=== PATIENT | male | born 1925 | race Asian ===

== ENCOUNTER 2016-08-18 09:08 | Inpatient (IN) | payer MEDICARE, OTHER ==
[~2016-08-18] VITALS: Ht 172.7 cm; Wt 84.0 kg
[~2016-08-18 09:08] MED LIST: ALBU18HF INHALATION; AMIO200T2 PO; APIX2.5T PO; BENZ100C70 PO; BUDE6.9H INHALATION; CARV12.598 PO; CHOL100062 PO; CILO50TA PO; CLOP75TA19 PO; COLE625T2 PO; DOXA1TAB PO; DOXY100T20 PO; FINA5TAB4 PO; FOLI-49 PO; FURO-110 PO; GABA100C14 PO; HYDR-3670 PO; ISOS120T15 PO; LEVO88TA3 PO; LORA-186 PO; OMEP20CA16 PO; POTA10TA37 PO; ROSU5TAB5 PO
[2016-08-18] MEDS ORDERED: COLC0.6T6 PO (10:28)
[2016-08-18] MEDS ORDERED: UDLOM PO (10:28)
[2016-08-18] MEDS ORDERED: IBUP-1542 PO (10:34)
[2016-08-18] MEDS ORDERED: SOD CHLORIDE 0.9% 1,000 ML IV STA (10:45)
[2016-08-18 10:56] LABS: ADD SCAN DIFF NO
[2016-08-18 11:02] LABS: BASOPHILS % 0.2 % (0.0-2.0); EOSINOPHILS % 0.4 % (0.0-7.0); HEMATOCRIT 38.4 % (42.0-52.0); HEMOGLOBIN 13.1 g/dl (14.0-18.0); LYMPHOCYTES # 0.9 10^3/ul (0.8-2.9); LYMPHOCYTES % 10.5 % (15.0-51.0); MEAN CORPUSCULAR HEMOGLOBIN 32.3 pg (29.0-33.0); MEAN CORPUSCULAR HGB CONC 34.1 g/dl (32.0-37.0); MEAN CORPUSCULAR VOLUME 94.8 fl (82.0-101.0); MEAN PLATELET VOLUME 10.2 fl (7.4-10.4); MONOCYTE # 0.9 10^3/ul (0.3-0.9); MONOCYTES % 10.1 % (0.0-11.0); NEUTROPHIL # 6.7 10^3/ul (1.6-7.5); NEUTROPHILS % 78.2 % (39.0-77.0); PLATELET COUNT 153 10^3/UL (140-415); RED BLOOD COUNT 4.05 10^6/ul (4.70-6.10); RED CELL DISTRIBUTION WIDTH 12.9 % (11.5-14.5); WHITE BLOOD COUNT 8.5 10^3/ul (4.8-10.8)
[2016-08-18 11:06] LABS: ALBUMIN 3.7 g/dl (3.3-4.9)
[2016-08-18 11:07] LABS: POTASSIUM 4.4 mmol/L (3.5-5.1)
[2016-08-18 11:09] LABS: ALBUMIN/GLOBULIN RATIO 0.92; BILIRUBIN,INDIRECT 0.1 mg/dl (0-1.1); BILIRUBIN,TOTAL 0.1 mg/dl (0.2-1.3); CREATININE 4.67 mg/dl (0.61-1.24); TOTAL PROTEIN 7.7 g/dl (6.1-8.1)
[2016-08-18 11:10] LABS: CALCIUM 9.1 mg/dl (8.4-10.2)
--- NOTE | 2016-08-18 12:11 | RADRPT ---
PROCEDURE: CT Abdomen and Pelvis without contrast. CLINICAL INDICATION: Abdominal pain, diarrhea. TECHNIQUE: CT scan of the abdomen and pelvis without contrast was performed on a multidetector hig h-resolution CT scanner. The patient was scanned without intravenous contrast. Coronal and sagittal reformatted images were obtained from the axial source images. Images were reviewed on a high-resol Suite101 PACS workstation. One or more of the following dose reduction techniques were used: Automated exposure control, adjustment of the mA and/or kV according to patient size, use of iterative recon struction technique. The total exam CTDI equals 15.21 mGy and the total exam DLP equals 946.79 mGy- cm. COMPARISON: Correlation with renal ultrasound from 07/27/2014 FINDINGS: CT abdomen: The heart size is enlarged. Coronary artery atherosclerotic calcifications are present. ch anges are present at the lung bases. There is a small hiatal hernia. The liver is normal in size and density without focal mass or intrahepatic biliary dilatation. The spleen is normal in size and homogeneous in density. The stomach is grossly unremarkable. The panc reas as visualized is normal. Small stones are present dependently within the gallbladder. There i s no evidence of gallbladder wall inflammation. The adrenal glands are symmetric and normal. Mult iple bilateral hypodense renal lesions are present measuring up to 3.5 cm on the left and likely rep resenting simple cysts. Minimal bilateral perinephric fat stranding is likely related to senescent change. There is no evidence of renal calculi or hydronephrosis. The aorta is of normal caliber. Heavy aortoiliac atherosclerotic calcifications are present. There i s no retroperitoneal lymphadenopathy. The mouna hepatis region is clear. The small bowel and mesen elsy, as visualized, are unremarkable. CT pelvis: The small bowel loops situated within the pelvis are unremarkable. The pelvic organs are normal. T he pelvic sidewalls and inguinal regions are clear. The sigmoid colon and rectum are unremarkable. No mass, lymphadenopathy, or free fluid is seen. No acute inflammation is seen. There is a moderate diffuse posterior disk bulge at L3-L4 resulting in moderate central canal narrow ing. No osteolytic or osteoblastic lesion is detected. IMPRESSION: 1. No abdominal or pelvic acute inflammatory process, mass, or lymphadenopathy. 2. Simple appearing bilateral hypodense renal lesions likely representing cysts. 3. Cholelithiasis without evidence of cholecystitis. 4. Heavy aortoiliac and coronary artery atherosclerosis. 5. Lumbar spondylosis with moderate central canal narrowing at L3-L4. 6. Small hiatal hernia. RPTAT: EE .Stefano Bonilla MD, Date Time Electronically viewed and signed by .Stefano Bonilla MD, on 08/18/2016 12:11 .A/
[2016-08-18 13:19] LABS: ADD UMIC YES; URINE BILIRUBIN (Dip) NEGATIVE (NEGATIVE); URINE BLOOD (Dip) 3+ (NEGATIVE); URINE COLOR LT. YELLOW (YELLOW); URINE GLUCOSE (Dip) NEGATIVE (NEGATIVE); URINE KETONES (Dip) NEGATIVE (NEGATIVE); URINE LEUKOCYTE ESTERASE (Dip) 1+ (NEGATIVE); URINE NITRITE (Dip) NEGATIVE (NEGATIVE); URINE TOTAL PROTEIN (Dip) 1+ (NEGATIVE); URINE UROBILINOGEN (Dip) 0.2 E.U./dL (0.1-1.0)
--- NOTE | 2016-08-18 13:25 | ERA ---
ER Documentation Chief Complaint Date/Time DATE: 08/18/16 TIME: 13:19 Chief Complaint diarrhea x 3 days HPI This is a 89-year-old male who complains of diarrhea for the past 4 days. Is having some left-sided abdominal pain onset for 2 days now described as crampy and nonradiating. He is having 4-5 bouts of diarrhea each day that are nonbloody without mucus. Denies any fever denies nausea vomiting denies chest pain denies hematuria dysuria back pain. No recent travel and no known food exposures. The patient is complaining of generalized malaise and fatigue and a lack of appetite that is mild ROS All systems reviewed and are negative except as per history of present illness. Medications Home Meds Active Scripts Benzonatate* (Tessalon Perle*) 100 Mg Capsule, 100 MG PO Q8H Y for COUGH, #14 CAP Prov:RUTH DENTON DO 11/29/15 Doxycycline Hyclate* (Doxycycline Hyclate*) 100 Mg Tablet.dr, 100 MG PO BID for 10 Days, TAB Prov:RUTH DENTON DO 11/29/15 Reported Medications Ibuprofen* (Ibuprofen*) 600 Mg Tablet, 600 MG PO Q8 Y for PAIN AND/OR INFLAMMATION, TAB 08/18/16 Colchicine* (Colcrys*) 0.6 Mg Tablet, 0.6 MG PO QID, TAB 08/18/16 Diphenoxylate Hcl-Atropine* (Lomotil*) 5 Ml Soln, 5 ML PO Q6H Y for DIARRHEA, ML 08/18/16 Budesonide-Formoterol Fumarate* (Symbicort*) 80-4.5 Mcg Hfa.aer.ad, 2 PUFF INHALATION BID, BOTTLE 11/29/15 Albuterol Sulfate* (Ventolin HFA*) 18 Gm Hfa.aer.ad, 2 PUFF INHALATION Q6H, #1 INHALER 11/29/15 Folic Acid* (Folic Acid*) 1 Mg Tablet, 1 MG PO DAILY, TAB 11/29/15 Potassium Chloride* (K-Dur*) 10 Meq Tab.prt.sr, 10 MEQ PO DAILY, TAB 11/29/15 Gabapentin* (Gabapentin*) 100 Mg Capsule, 100 MG PO QHS, #90 CAP 11/29/15 Cholecalciferol* (Vitamin D3*) 1,000 Unit Tablet, 1000 UNIT PO DAILY, TAB 11/29/15 Loratadine* (Claritin*) 10 Mg Tablet, 10 MG PO DAILY, TAB 11/29/15 Apixaban* (Eliquis*) 2.5 Mg Tablet, 2.5 MG PO BID, TAB 11/29/15 Isosorbide Mononitrate* (Isosorbide Mononitrate*) 120 Mg Tab.sr.24h, 240 MG PO DAILY, TAB.SA 11/29/15 Furosemide* (Lasix*) 20 Mg Tablet, 20 MG PO BID, TAB 11/29/15 Amiodarone Hcl* (Amiodarone Hcl*) 200 Mg Tablet, 200 MG PO DAILY, #30 TAB 11/29/15 Doxazosin Mesylate* (Doxazosin Mesylate*) 1 Mg Tablet, 1 MG PO HS, TAB 01/15/14 Rosuvastatin Calcium* (Crestor*) 5 Mg Tablet, 5 MG PO HS, TAB 01/15/14 Carvedilol* (Coreg*) 12.5 Mg Tablet, 12.5 MG PO BID, TAB 01/15/14 Omeprazole* (Omeprazole*) 20 Mg Capsule.dr, 20 MG PO BID AC MEAL, CAP 01/15/14 Cilostazol* (Cilostazol*) 50 Mg Tablet, 50 MG PO BID, TAB 01/15/14 Colesevelam Hcl* (Welchol*) 625 Mg Tablet, 1875 MG PO BID, TAB 01/15/14 Hydralazine Hcl* (Hydralazine Hcl*) 10 Mg Tablet, 10 MG PO TID, TAB 01/15/14 Levothyroxine Sodium* (Levothyroxine Sodium*) 88 Mcg Tablet, 88 MCG PO DAILY, TAB 01/15/14 Clopidogrel Bisulfate (Plavix) 75 Mg Tablet, 75 MG PO DAILY 05/26/11 Finasteride* (Finasteride*) 5 Mg Tablet, 5 MG PO DAILY 05/26/11 Allergies Allergies: Coded Allergies: No Known Allergy (Verified , 11/29/15) PMhx/Soc History of Surgery: Yes Anesthesia Reaction: No Hx Neurological Disorder: No Hx Respiratory Disorders: No Hx Cardiac Disorders: Yes (HTN, PREVIOUS TRIPLE BYPASS,CAD, PACEMAKER) Hx Psychiatric Problems: No Hx Miscellaneous Medical Probl: No Hx Alcohol Use: No Hx Substance Use: No Hx Tobacco Use: No Smoking Status: Never smoker FmHx Family History: No coronary disease Physical Exam Vitals Vital Signs Date Time Temp Pulse Resp B/P Pulse Ox O2 Delivery O2 Flow Rate FiO2 08/18/16 10:12 73 20 117/73 100 Room Air 08/18/16 09:18 97.6 65 20 120/57 98 Physical Exam Const: Well-developed, well-nourished Head: Atraumatic, normocephalic Eyes: Normal Conjunctiva, PERRLA, EOMI, normal sclera, no nystagmus ENT: Normal External Ears, Nose and Mouth, moist mucus membranes. Neck: Full range of motion. No meningismus, no lymphadenopathy. Resp: Clear to auscultation bilaterally, no wheezing, rhonchi, rales Cardio: Regular rate and rhythm, no murmurs, S1 S2 present Abd: Soft, some mild diffuse left abdominal tenderness, non distended. Normal bowel sounds, no guarding or rebound, no pulsitile abdominal masses or bruits Skin: No petechiae or rashes, no ecchymosis , no maculopapular rash Back: No midline or flank tenderness Ext: No cyanosis, or edema, FROM x 4, normal inspection, neurovascularly intact x 4 Neur: Awake and alert, STR 5/5 x 4, sensation intact x 4, no focal findings, cerebellum intact Psych: Normal Mood and Affect Result Diagram: 08/18/1695408/18/16 0955 Results 24 hrs Laboratory Tests Test 08/18/16 09:55 White Blood Count 8.510^3/ul Red Blood Count 4.0510^6/ul Hemoglobin 13.1g/dl Hematocrit 38.4% Mean Corpuscular Volume 94.8fl Mean Corpuscular Hemoglobin 32.3pg Mean Corpuscular Hemoglobin Concent 34.1g/dl Red Cell Distribution Width 12.9% Platelet Count 17015^3/UL Mean Platelet Volume 10.2fl Neutrophils % 78.2% Lymphocytes % 10.5% Monocytes % 10.1% Eosinophils % 0.4% Basophils % 0.2% Nucleated Red Blood Cells % 0.0/100WBC Neutrophils # 6.710^3/ul Lymphocytes # 0.910^3/ul Monocytes # 0.910^3/ul Eosinophils # 0.010^3/ul Basophils # 0.010^3/ul Nucleated Red Blood Cells # 0.010^3/ul Sodium Level 131mmol/L Potassium Level 4.4mmol/L Chloride Level 99mmol/L Carbon Dioxide Level 17mmol/L Anion Gap 19 Blood Urea Nitrogen 62mg/dl Creatinine 4.67mg/dl Glucose Level 84mg/dl Calcium Level 9.1mg/dl Total Bilirubin 0.1mg/dl Direct Bilirubin 0.00mg/dl Indirect Bilirubin 0.1mg/dl Aspartate Amino Transf (AST/SGOT) 31IU/L Alanine Aminotransferase (ALT/SGPT) 32IU/L Alkaline Phosphatase 95IU/L Total Protein 7.7g/dl Albumin 3.7g/dl Globulin 4.00g/dl Albumin/Globulin Ratio 0.92 Lipase 519U/L Current Medications Medications (Trade) Dose Ordered Sig/Manasa Route PRN Reason Start Time Stop Time Status Last Admin Dose Admin Sodium Chloride (NS) 1,000 ml @ 1,000 mls/hr Q1H STAT IV 08/18/16 10:45 08/18/16 11:44 DC 08/18/16 10:48 Procedures/MDM PROCEDURE: CT Abdomen and Pelvis without contrast. CLINICAL INDICATION: Abdominal pain, diarrhea. TECHNIQUE: CT scan of the abdomen and pelvis without contrast was performed on a multidetector high-resolution CT scanner. The patient was scanned without intravenous contrast. Coronal and sagittal reformatted images were obtained from the axial source images. Images were reviewed on a high-resolution PACS workstation. One or more of the following dose reduction techniques were used: Automated exposure control, adjustment of the mA and/or kV according to patient size, use of iterative reconstruction technique. The total exam CTDI equals 15.21 mGy and the total exam DLP equals 946.79 mGy-cm. COMPARISON: Correlation with renal ultrasound from 07/27/2014 FINDINGS: CT abdomen: The heart size is enlarged. Coronary artery atherosclerotic calcifications are present. changes are present at the lung bases. There is a small hiatal hernia. The liver is normal in size and density without focal mass or intrahepatic biliary dilatation. The spleen is normal in size and homogeneous in density. The stomach is grossly unremarkable. The pancreas as visualized is normal. Small stones are present dependently within the gallbladder. There is no evidence of gallbladder wall inflammation. The adrenal glands are symmetric and normal. Multiple bilateral hypodense renal lesions are present measuring up to 3.5 cm on the left and likely representing simple cysts. Minimal bilateral perinephric fat stranding is likely related to senescent change. There is no evidence of renal calculi or hydronephrosis. The aorta is of normal caliber. Heavy aortoiliac atherosclerotic calcifications are present. There is no retroperitoneal lymphadenopathy. The mouna hepatis region is clear. The small bowel and mesentery, as visualized, are unremarkable. CT pelvis: The small bowel loops situated within the pelvis are unremarkable. The pelvic organs are normal. The pelvic sidewalls and inguinal regions are clear. The sigmoid colon and rectum are unremarkable. No mass, lymphadenopathy, or free fluid is seen. No acute inflammation is seen. There is a moderate diffuse posterior disk bulge at L3-L4 resulting in moderate central canal narrowing. No osteolytic or osteoblastic lesion is detected. IMPRESSION: 1. No abdominal or pelvic acute inflammatory process, mass, or lymphadenopathy. 2. Simple appearing bilateral hypodense renal lesions likely representing cysts. 3. Cholelithiasis without evidence of cholecystitis. 4. Heavy aortoiliac and coronary artery atherosclerosis. 5. Lumbar spondylosis with moderate central canal narrowing at L3-L4. 6. Small hiatal hernia. RPTAT: EE .Stefano Bonilla MD, MD Date Time Electronically viewed and signed by .Stefano Bonilla MD, MD on 08/18/2016 12:11 .A/ CC: SHIVAM MI DO There is no acute intra-abdominal process going on. The patient has an elevated creatinine above 4 and his last creatinine was 1.99 Is a low CO2 consistent with acidosis and elevated BUN and creatinine consistent with volume depletion/dehydration I will admit to the hospital for IV fluid resuscitation and monitor Departure Diagnosis: Primary Impression: Renal failure Additional Impression: Diarrhea with dehydration Condition: Stable SHIVAM MI DO August 18, 2016 13:25
[2016-08-18 13:48] LABS: BACTERIA,URINE MANY
[2016-08-18] MEDS ORDERED: SOD CHLORIDE 0.9% 1,000 ML IV SCH (14:09)
[2016-08-18] MEDS ORDERED: ACETAMINOPHEN 325 MG TAB PO PRN (14:30)
[2016-08-18] MEDS ORDERED: ONDANSETRON 4 MG INJ IV PRN (14:30)
[2016-08-18 14:48] VITALS: BP 142/64; PULSE 73; RESP 18; Ht 172.7 cm; Wt 84.0 kg
[2016-08-18] MEDS: DEXTROSE 5%-0.9% NACL 1,000 ML IV SCH (19:04)
[2016-08-18] MEDS ORDERED: ALBUTEROL HFA 8 GM INHALER INH SCH (20:00)
[2016-08-18] MEDS ORDERED: IBUPROFEN 600 MG TAB PO PRN (20:00)
[2016-08-18] MEDS ORDERED: DIPHENOXYLATE/ATROPINE 5 ML CUP PO PRN (20:00)
[2016-08-18] MEDS ORDERED: BENZONATATE 100 MG CAP PO PRN (20:00)
[2016-08-18 20:18] VITALS: BP 164/87; RESP 16
[2016-08-18] MEDS: CILOSTAZOL 100 MG TAB PO SCH (21:33)
[2016-08-18] MEDS: COLESEVELAM 625 MG TAB PO SCH (21:33)
[2016-08-18] MEDS: DOXAZOSIN 1 MG TAB PO SCH (21:34)
[2016-08-18] MEDS: APIXABAN 5 MG TABLET PO SCH (21:34)
[2016-08-18] MEDS: GABAPENTIN 100 MG CAP PO SCH (21:34)
[2016-08-18] MEDS: FUROSEMIDE 20 MG TAB PO SCH (21:35)
[2016-08-18] MEDS: ALBUTEROL 18 GM INHALER INH SCH ×2 (22:20→23:32)
[2016-08-18 22:29] VITALS: BP 146/81; PULSE 75
--- NOTE | 2016-08-18 22:55 | QN ---
Documentation Comment [id number] RIAZ CADENA MD August 18, 2016 22:55
[2016-08-19 05:48] LABS: ADD SCAN DIFF NO
[2016-08-19 06:02] LABS: BASOPHILS % 0.3 % (0.0-2.0); EOSINOPHILS % 0.2 % (0.0-7.0); HEMATOCRIT 34.5 % (42.0-52.0); HEMOGLOBIN 11.9 g/dl (14.0-18.0); LYMPHOCYTES # 0.8 10^3/ul (0.8-2.9); LYMPHOCYTES % 12.5 % (15.0-51.0); MEAN CORPUSCULAR HEMOGLOBIN 32.8 pg (29.0-33.0); MEAN CORPUSCULAR HGB CONC 34.5 g/dl (32.0-37.0); MEAN PLATELET VOLUME 10.6 fl (7.4-10.4); MONOCYTE # 0.8 10^3/ul (0.3-0.9); MONOCYTES % 12.2 % (0.0-11.0); NEUTROPHIL # 4.9 10^3/ul (1.6-7.5); NEUTROPHILS % 74.3 % (39.0-77.0); PLATELET COUNT 145 10^3/UL (140-415); RED BLOOD COUNT 3.63 10^6/ul (4.70-6.10); WHITE BLOOD COUNT 6.6 10^3/ul (4.8-10.8)
[2016-08-19] MEDS: ALBUTEROL 18 GM INHALER INH SCH ×3 (06:05→17:50)
[2016-08-19] MEDS: FUROSEMIDE 20 MG TAB PO SCH ×2 (06:05→17:58)
[2016-08-19] MEDS: PANTOPRAZOLE 40 MG INJ IV SCH (06:05)
[2016-08-19 06:19] VITALS: BP 130/71
[2016-08-19 06:19] LABS: ALBUMIN 3.1 g/dl (3.3-4.9)
[2016-08-19 06:20] LABS: POTASSIUM 4.4 mmol/L (3.5-5.1)
[2016-08-19 06:22] LABS: ALBUMIN/GLOBULIN RATIO 0.88; BILIRUBIN,INDIRECT 0.1 mg/dl (0-1.1); BILIRUBIN,TOTAL 0.1 mg/dl (0.2-1.3); CREATININE 3.73 mg/dl (0.61-1.24); TOTAL PROTEIN 6.6 g/dl (6.1-8.1)
[2016-08-19 06:23] LABS: CALCIUM 8.8 mg/dl (8.4-10.2)
--- NOTE | 2016-08-19 06:37 | HP ---
DATE OF ADMISSION: 08/18/2016 HISTORY OF PRESENT ILLNESS: The patient with a history of CKD. The patient also has a history of CAD, history of PVD, hypertension, hypothyroidism, gout, dyslipidemia. Has history of left heart catheterization and history of angioplasty and stenting in the past. Now presents with diarrhea for last 3 to 4 days. The patient has elevation of BUN and creatinine, so the patient is being admitted for further management. PAST MEDICAL HISTORY: Hypertension, history of CAD, gout, dyslipidemia, history of edema, cardiac arrhythmia, atherosclerotic heart disease, BPH, neuropathy. ALLERGY HISTORY: NEGATIVE. FAMILY HISTORY: Negative. SOCIAL HISTORY: Negative. MEDICATION HISTORY: Listed as at home. 1. Albuterol. 2. Amiodarone. 3. Apixaban. 4. hhn. 5. Budesonide. 6. Coreg. 7. Vitamin D3. 8. Pletal. 9. Plavix. 10. bp meds. 11. Welchol. 12. Diphenoxylate. 13. Cardura. 14. Doxycycline. 15. Proscar. 16. Folic acid. 17. Lasix. 18. Gabapentin. 19. Hydralazine. 20. Ibuprofen. 21. Isosorbide. 22. Levothyroxine. 23. Loratadine. REVIEW OF SYSTEMS: HEENT: Unremarkable. RESPIRATORY: Unremarkable. CARDIOVASCULAR: Unremarkable. ABDOMEN: Diarrhea. No hematemesis, melena. No fever. EXTREMITIES: Decreasing edema. PHYSICAL EXAMINATION: GENERAL: The patient is awake and alert. VITAL SIGNS: Pulse of 75, blood pressure 146/80. HEENT: Head is atraumatic, normocephalic. No pallor, conjunctival icterus. NECK: Supple. LUNGS: Clear. CARDIOVASCULAR: S1, S2 are normal. Systolic murmur noted. ABDOMEN: Soft, nontender. Bowel sounds present. No palpable mass. EXTREMITIES: No cyanosis, clubbing. Trace edema. CENTRAL NERVOUS SYSTEM: The patient is awake, alert. No deficit. LABORATORY DATA: The patient has hematocrit 38.4. Sodium , potassium 4.4, BUN _ creatinine _, lipase 5.9. IMAGING: Abdomen and pelvis CT scan shows no abdominopelvic acute inflammatory process, mass or lymphadenopathy. Simple-appearing bilateral _ lesion, cholelithiasis_, aortoiliac and coronary arterial atherosclerosis, lumbar spondylosis, small hiatal hernia. IMPRESSION: 1. Acute kidney injury due to prerenal azotemia. 2. Dehydration. 3. The patient has gastroenteritis. Rule out Clostridium difficile colitis. 4. The patient has hypertension. 5. cad 6. hx ptca. 7. The patient has anemia. 8. The patient _ashd 9. percutaneous transluminal coronary angioplasty and stenting. PLAN: Obtain stool for culture, sensitivity, C. difficile. IV fluids. The patient's home medications will be reviewed and continued. Orders were done. Laboratory were ordered Dictated By: RIAZ CADENA MD BS/NTS Conf#: [id number] DID#: [id number]
[2016-08-19 07:38] VITALS: BP 148/75; RESP 18
[2016-08-19] MEDS: CILOSTAZOL 100 MG TAB PO SCH ×2 (09:32→21:21)
[2016-08-19] MEDS: FINASTERIDE 5 MG TAB PO SCH (09:33)
[2016-08-19] MEDS: COLESEVELAM 625 MG TAB PO SCH ×2 (09:33→21:20)
[2016-08-19] MEDS: CHOLECALCIFEROL 1,000 UNIT TAB PO SCH (09:33)
[2016-08-19] MEDS: APIXABAN 5 MG TABLET PO SCH ×2 (09:34→21:21)
[2016-08-19] MEDS: LEVOTHYROXINE 88 MCG TAB PO SCH (09:34)
[2016-08-19] MEDS: FOLIC ACID 1 MG TAB PO SCH (09:34)
[2016-08-19] MEDS: CLOPIDOGREL 75 MG TAB PO SCH (09:34)
[2016-08-19] MEDS: LORATADINE 10 MG TAB PO SCH (09:34)
[2016-08-19] MEDS: DEXTROSE 5%-0.9% NACL 1,000 ML IV SCH (09:35)
[2016-08-19] MEDS: AMIODARONE 200 MG TAB PO SCH (09:36)
[2016-08-19] MEDS: ISOSORBIDE MONONITRATE(SR)60 MG TAB PO SCH (09:37)
[2016-08-19] MEDS ORDERED: SOD CHLORIDE 0.9% 250 ML IV ONE (16:00)
[2016-08-19 17:02] LABS: ADD UMIC YES; URINE BILIRUBIN (Dip) NEGATIVE (NEGATIVE); URINE BLOOD (Dip) 3+ (NEGATIVE); URINE GLUCOSE (Dip) NEGATIVE (NEGATIVE); URINE KETONES (Dip) NEGATIVE (NEGATIVE); URINE NITRITE (Dip) NEGATIVE (NEGATIVE); URINE TOTAL PROTEIN (Dip) 2+ (NEGATIVE); URINE UROBILINOGEN (Dip) 0.2 E.U./dL (0.1-1.0)
[2016-08-19 17:04] LABS: URINE LEUKOCYTE ESTERASE (Dip) 3+ (NEGATIVE)
[2016-08-19 17:05] LABS: URINE COLOR RED (YELLOW)
[2016-08-19 17:12] LABS: URINE RBCS >200 /HPF (0)
[2016-08-19 17:41] VITALS: BP 99/55; PULSE 65
[2016-08-19 19:52] VITALS: BP 102/60; RESP 16
[2016-08-19 20:00] VITALS: BP 93/51; PULSE 64
--- NOTE | 2016-08-19 20:28 | PN ---
Date/Time of Note Date/Time of Note DATE: 08/19/16 TIME: 20:21 Assessment/Plan VTE Prophylaxis VTE Prophylaxis Intervention: other Lines/Catheters IV [facility] Peripheral IV Urinary Cath still in place: No Assessment/Plan Chief Complaint/Hosp Course IMPRESSION: 1. Acute kidney injury due to prerenal azotemia. 2. Dehydration. 3. The patient has gastroenteritis. Rule out Clostridium difficile colitis. 4. The patient has hypertension. 5. cad 6. hx ptca. 7. The patient has anemia. 8. The patient _ashd 9. percutaneous transluminal coronary angioplasty and stenting. 10 UTI PLAN ANTIBIOTIC IV FLUID Problems: Subjective 24 Hr Interval Summary Respiratory: no complaints Cardiovascular: no complaints Gastrointestinal: diarrhea (+) Genitourinary: no complaints Exam/Review of Systems Vital Signs Vitals Vital Signs Date Time Temp Pulse Resp B/P Pulse Ox O2 Delivery O2 Flow Rate FiO2 08/19/16 20:00 64 93/51 08/19/16 19:52 97.8 16 96 08/18/16 14:48 Room Air Intake and Output 08/18/16 08/18/16 08/19/16 15:00 23:00 07:00 Intake Total 1000 ml 320 ml 724 ml Output Total 500 ml 600 ml Balance 1000 ml -180 ml 124 ml Exam Neck: supple Respiratory: clear to auscultation Cardiovascular: regular rate and rhythm Gastrointestinal: bowel sounds (+), soft Results Result Diagram: 08/19/16 0420 08/19/16 0420 Results 24 hrs Laboratory Tests Test 08/19/16 04:20 08/19/16 15:52 White Blood Count 6.6 # Red Blood Count 3.63 L Hemoglobin 11.9 L Hematocrit 34.5 L Mean Corpuscular Volume 95.0 Mean Corpuscular Hemoglobin 32.8 Mean Corpuscular Hemoglobin Concent 34.5 Red Cell Distribution Width 13.0 Platelet Count 145 Mean Platelet Volume 10.6 H Neutrophils % 74.3 Lymphocytes % 12.5 L Monocytes % 12.2 H Eosinophils % 0.2 Basophils % 0.3 Nucleated Red Blood Cells % 0.0 Neutrophils # 4.9 Lymphocytes # 0.8 Monocytes # 0.8 Eosinophils # 0.0 Basophils # 0.0 Nucleated Red Blood Cells # 0.0 Sodium Level 138 Potassium Level 4.4 Chloride Level 109 # Carbon Dioxide Level 15 L Anion Gap 18 H Blood Urea Nitrogen 61 H Creatinine 3.73 H Glucose Level 89 Calcium Level 8.8 Total Bilirubin 0.1 L Direct Bilirubin 0.00 Indirect Bilirubin 0.1 Aspartate Amino Transf (AST/SGOT) 31 Alanine Aminotransferase (ALT/SGPT) 36 Alkaline Phosphatase 81 Total Protein 6.6 # Albumin 3.1 L Globulin 3.50 H Albumin/Globulin Ratio 0.88 Urine Color RED Urine Clarity CLOUDY H Urine pH 5.5 Urine Specific [place] 1.020 Urine Ketones NEGATIVE Urine Nitrite NEGATIVE Urine Bilirubin NEGATIVE Urine Urobilinogen 0.2 E.U./dL Urine Leukocyte Esterase 3+ H Urine Microscopic RBC >200 Urine Microscopic WBC 10-25 Urine Hemoglobin 3+ H Urine Glucose NEGATIVE Urine Total Protein 2+ H Medications Medications Current Medications Dextrose/Sodium Chloride (D5-NS) 1,000 ml @ 70 mls/hr [id number] IV Last administered on 08/19/16 09:35; Admin Dose 70 MLS/HR; Start 08/18/16 at 18:30 Pantoprazole (Protonix Iv) 40 mg DAILY@06 IV Last administered on 08/19/16 06: 05; Admin Dose 40 MG; Start 08/19/16 at 06:00 Amiodarone HCl (Cordarone) 200 mg DAILY PO Last administered on 08/19/16 09:36 ; Admin Dose 200 MG; Start 08/19/16 at 09:00 Apixaban (Eliquis) 2.5 mg BID PO Last administered on 08/19/16 09:34; Admin Dose 2.5 MG; Start 08/18/16 at 21:00 Benzonatate (Tessalon) 100 mg Q8H PRN PO COUGH; Start 08/18/16 at 20:00 Carvedilol (Coreg) 12.5 mg BID PO Last administered on 08/19/16 09:36; Admin Dose 12.5 MG; Start 08/18/16 at 21:00 Cholecalciferol (Vitamin D) 1,000 unit DAILY PO Last administered on 08/19/16 09:33; Admin Dose 1,000 UNIT; Start 08/19/16 at 09:00 Cilostazol (Pletal) 50 mg BID PO Last administered on 08/19/16 09:32; Admin Dose 50 MG; Start 08/18/16 at 21:00 Clopidogrel Bisulfate (plaVIX) 75 mg DAILY PO Last administered on 08/19/16 09 :34; Admin Dose 75 MG; Start 08/19/16 at 09:00 Colesevelam HCl (Welchol) 1,875 mg BID PO Last administered on 08/19/16 09:33 ; Admin Dose 1,875 MG; Start 08/18/16 at 21:00 Diphenoxylate HCl/ Atropine (Lomotil Liquid Cup) 5 ml Q6H PRN PO DIARRHEA; Start 08/18/16 at 20:00 Doxazosin Mesylate (Cardura) 1 mg HS PO Last administered on 08/18/16 21:34; Admin Dose 1 MG; Start 08/18/16 at 21:00 Finasteride (Proscar) 5 mg DAILY PO Last administered on 08/19/16 09:33; Admin Dose 5 MG; Start 08/19/16 at 09:00 Folic Acid (Folic Acid) 1 mg DAILY PO Last administered on 08/19/16 09:34; Admin Dose 1 MG; Start 08/19/16 at 09:00 Gabapentin (Neurontin) 100 mg QHS PO Last administered on 08/18/16 21:34; Admin Dose 100 MG; Start 08/18/16 at 21:00 Hydralazine HCl (Apresoline) 10 mg TID PO Last administered on 08/19/16 09:36 ; Admin Dose 10 MG; Start 08/18/16 at 21:00 Ibuprofen (Motrin) 600 mg Q8 PRN PO PAIN AND/OR INFLAMMATION; Start 08/18/16 at 20:00 Isosorbide Mononitrate (Imdur) 240 mg DAILY PO Last administered on 08/19/16 09:37; Admin Dose 240 MG; Start 08/19/16 at 09:00 Levothyroxine Sodium (Synthroid) 88 mcg DAILY PO Last administered on 09:34; Admin Dose 88 MCG; Start 08/19/16 at 09:00 Loratadine (Claritin) 10 mg DAILY PO Last administered on 08/19/16 09:34; Admin Dose 10 MG; Start 08/19/16 at 09:00 Albuterol (Ventolin Hfa) 2 puff Q6 INH Last administered on 08/19/16 17:50; Admin Dose 2 PUFF; Start 08/18/16 at 20:00 RIAZ CADENA MD August 19, 2016 20:28
[2016-08-19] MEDS ORDERED: LEVOFLOXACIN 500 MG TAB PO SCH (20:30)
--- NOTE | 2016-08-19 20:32 | CONS ---
DATE OF ADMISSION: 08/18/2016 DATE OF CONSULTATION: 08/19/2016 REQUESTING PHYSICIAN: Dr. Yaniv Trejo Dear Yaniv: Thank you for asking me to see this patient in urological consultation. HISTORY OF PRESENT ILLNESS: This is an 89-year-old [place] male who was admitted to the [facility] of diarrhea for about 3 to 4 days. Upon admission, urinalysis did show that he has blood in his urine. Therefore, a urological consultation was requested. The patient stated that before this he did not have any blood in his urine before. He is known to have a history of chronic kidney dis ease, history of hypertension, coronary artery disease, dyslipidemia, gout, and cardiac arrhythmia a nd a history of peripheral neuropathy. The patient usually does have nocturia about 2 times a night , and he does have a history of urgency and urgency incontinence. He does report mild dysuria, and he feels he does not empty his bladder all the way. He denies any history of kidney stones. He has had urinary tract infection many years back. The patient has been on finasteride for an enlarged p rostate. PAST MEDICAL HISTORY: Includes a history of hypertension, coronary artery disease. He is status po st coronary artery bypass graft in 2002, history of goiter surgery, appendectomy, bilateral cataract surgery. 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 MEDICATIONS: The present medications that he is on include: 1. Amiodarone. 2. Vitamin D. 3. Plavix. 4. Finasteride 5 mg daily. 5. Folic acid 1 mg daily. 6. Isosorbide 250 mg daily. 7. Synthroid 88 mcg daily. 8. Claritin 10 mg daily. 9. Protonix 40 mg daily. 10. Eliquis 2.5 mg twice a day. 11. Coreg 12.5 mg twice a day. 12. Pletal 50 mg twice a day. 13. Welchol 1875 mg twice a day. 14. Doxazosin 1 mg at bedtime daily. 15. Neurontin 100 mg at bedtime. 16. Apresoline 10 mg 3 times a day. 17. Furosemide 20 mg daily. PHYSICAL EXAMINATION: GENERAL: Reveals an elderly male. He weighs 84 kg. He is 68 inches tall. VITAL SIGNS: Temperature is 98.1, pulse is 65, respirations 18, blood pressure is 148/75, the last one was 99/55. CHEST: Shows scar from his prior coronary artery bypass graft. ABDOMEN: Soft and shows no tenderness, but he does have scar from prior surgery of the appendectomy . EXTERNAL GENITALIA: Normal right testis. 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 RECTAL: Reveals a prostate that is soft and it does not appear to be large. EXTREMITIES: Reveal no edema. LABORATORY DATA: CBC shows a white count of 6.6, hemoglobin 11.9, hematocrit 34.5. The BUN is 61, creatinine 3.73. It appears that his renal function has deteriorated. It was bad, creatinine was a round 2 before, now it is 3.73. The sodium 138, potassium 4.4, chloride 100, CO2 15. The urine cul ture is pending. Urinalysis showed 3+ leukocyte esterase, 10 to 25, WBCs, more than 200 RBCs, 3+ oc cult blood. The patient did have a CT scan of the abdomen and pelvis without contrast, and that was reported as no abdominal or pelvic acute inflammatory process, mass, or lymphadenopathy, simple-ann earing bilateral hypodense renal lesions likely representing cysts, in fact he has had multiple ultr asounds in the past and that was reported as renal cysts. The patient does have cholelithiasis with out evidence of cholecystitis, heavy aortoiliac and coronary artery atherosclerosis, lumbar spondylo sis with moderate central canal narrowing at L3-L4, small hiatal hernia. IMPRESSION: Microscopic hematuria. The patient's prostate is mildly enlarged and it is not causing any problem. The kidney, he does have bilateral renal cyst, and the kidneys are, on prior ultrasou nd, increased cortical echogenicity, possibly indicating medical renal disease, and that was from e ultrasound that was done in 2012. PLAN: To do a urine culture which has already been sent, and also I will order urine cytology, and then I will also do a pelvic ultrasound to check his bladder. Then if no infection and he still has hematuria, we may have to do a cystoscopy on this patient. Dictated By: GEETA SHAH/MARCE Conf#: [id number] DID#: [id number]
[2016-08-19] MEDS: DOXAZOSIN 1 MG TAB PO SCH (21:00)
[2016-08-19] MEDS: GABAPENTIN 100 MG CAP PO SCH (21:22)
[2016-08-20] MEDS: DEXTROSE 5%-0.9% NACL 1,000 ML IV SCH ×3 (00:39→15:14)
[2016-08-20] MEDS: ALBUTEROL 18 GM INHALER INH SCH ×5 (00:40→23:00)
[2016-08-20 05:50] LABS: ADD SCAN DIFF NO
[2016-08-20 05:55] LABS: BASOPHILS % 0.5 % (0.0-2.0); EOSINOPHILS # 0.1 10^3/ul (0.0-0.5); EOSINOPHILS % 0.6 % (0.0-7.0); HEMATOCRIT 32.1 % (42.0-52.0); HEMOGLOBIN 10.7 g/dl (14.0-18.0); LYMPHOCYTES # 0.8 10^3/ul (0.8-2.9); LYMPHOCYTES % 9.9 % (15.0-51.0); MEAN CORPUSCULAR HGB CONC 33.3 g/dl (32.0-37.0); MEAN CORPUSCULAR VOLUME 96.1 fl (82.0-101.0); MEAN PLATELET VOLUME 10.6 fl (7.4-10.4); MONOCYTE # 1.2 10^3/ul (0.3-0.9); MONOCYTES % 15.2 % (0.0-11.0); NEUTROPHIL # 5.7 10^3/ul (1.6-7.5); NEUTROPHILS % 72.9 % (39.0-77.0); PLATELET COUNT 148 10^3/UL (140-415); RED BLOOD COUNT 3.34 10^6/ul (4.70-6.10); RED CELL DISTRIBUTION WIDTH 13.2 % (11.5-14.5); WHITE BLOOD COUNT 7.8 10^3/ul (4.8-10.8)
[2016-08-20] MEDS: PANTOPRAZOLE 40 MG INJ IV SCH (06:13)
[2016-08-20 06:20] LABS: ALBUMIN 2.6 g/dl (3.3-4.9); ALBUMIN/GLOBULIN RATIO 0.92; BILIRUBIN,INDIRECT 0.2 mg/dl (0-1.1); BILIRUBIN,TOTAL 0.2 mg/dl (0.2-1.3); CALCIUM 8.6 mg/dl (8.4-10.2); CREATININE 3.43 mg/dl (0.61-1.24); POTASSIUM 4.5 mmol/L (3.5-5.1); TOTAL PROTEIN 5.4 g/dl (6.1-8.1)
[2016-08-20 07:49] VITALS: BP 120/68; RESP 18
[2016-08-20] MEDS: CILOSTAZOL 100 MG TAB PO SCH ×2 (08:13→21:24)
[2016-08-20] MEDS: COLESEVELAM 625 MG TAB PO SCH ×2 (08:13→21:27)
[2016-08-20] MEDS: FINASTERIDE 5 MG TAB PO SCH (08:13)
[2016-08-20] MEDS: AMIODARONE 200 MG TAB PO SCH (08:13)
[2016-08-20] MEDS: FOLIC ACID 1 MG TAB PO SCH (08:14)
[2016-08-20] MEDS: LEVOTHYROXINE 88 MCG TAB PO SCH (08:14)
[2016-08-20] MEDS: APIXABAN 5 MG TABLET PO SCH ×2 (08:14→21:24)
[2016-08-20] MEDS: CLOPIDOGREL 75 MG TAB PO SCH (08:14)
[2016-08-20] MEDS: CHOLECALCIFEROL 1,000 UNIT TAB PO SCH (08:20)
[2016-08-20] MEDS: LORATADINE 10 MG TAB PO SCH (08:20)
[2016-08-20] MEDS: ISOSORBIDE MONONITRATE(SR)60 MG TAB PO SCH (09:00)
--- NOTE | 2016-08-20 09:13 | PN ---
DATE: 08/20/2016 SUBJECTIVE: Hematuria. The patient states that he is comfortable, that his urine is still blood ti nged. OBJECTIVE: VITAL SIGNS: His temperature is 98.2, pulse 72, respirations 18, blood pressure 120/68. ABDOMEN: Soft. LABORATORY DATA: Sodium 136, potassium 4.5, chloride 115, CO2 15, BUN is 57, creatinine 3.43. CBC: White count 7.8, hemoglobin 10.7, hematocrit 32.1. Urine culture is still not done, is still unav ailable at the computer. Urine cytology has been ordered and hopefully they sent it this morning. IMPRESSION: Hematuria. PLAN: Wait for the urine culture and also urine cytology. I also ordered a pelvic ultrasound to be done and that is still pending, to see if one could see any mass inside the bladder. The CT scan wa s done yesterday and the report is that the upper tract appeared to be normal. Dictated By: GEETA SHAH/MARCE Conf#: [id number] DID#: [id number]
[2016-08-20 09:54] VITALS: BP 90/54; PULSE 65
--- NOTE | 2016-08-20 10:03 | RADRPT ---
PROCEDURE: Urinary bladder ultrasound . CLINICAL INDICATION: Hematuria and bladder mass TECHNIQUE: Multiple sonographic images of the pelvis were obtained. The images were reviewed on a PACS workstation. COMPARISON: 08/18/2016 FINDINGS: The urinary bladder bladder is normal in size, contour and wall thickness. No evidence of bladder st ones. No evidence of a bladder mass. RPTAT: AA IMPRESSION: Normal ultrasound of the urinary bladder. No mass is visualized. Further evaluation with cystoscopy or a CT urogram is recommended. .Dennis Stoddard MD, MD Date Time Electronically viewed and signed by .Dennis Stoddard MD, on 08/20/2016 10:03 .S/
[2016-08-20 12:11] VITALS: BP 110/63; PULSE 65
--- NOTE | 2016-08-20 20:03 | PN ---
Date/Time of Note Date/Time of Note DATE: 08/20/16 TIME: 20:02 Assessment/Plan VTE Prophylaxis VTE Prophylaxis Intervention: other Lines/Catheters IV [facility] Type (from [facility]): Peripheral IV Urinary Cath still in place: No Assessment/Plan Chief Complaint/Hosp Course IMPRESSION: 1. Acute kidney injury due to prerenal azotemia. 2. Dehydration.better 3. The patient has gastroenteritis. Rule out Clostridium difficile colitis. 4. The patient has hypertension. 5. cad 6. hx ptca. 7. The patient has anemia. 8. The patient _ashd 9. percutaneous transluminal coronary angioplasty and stenting. 10 UTI 11 metabolic acidosis PLAN ANTIBIOTIC IV FLUID bicitra Problems: Subjective 24 Hr Interval Summary Subjective hx not possible: other (s/p hematuria) Gastrointestinal: no complaints Genitourinary: no complaints Exam/Review of Systems Vital Signs Vitals Vital Signs Date Time Temp Pulse Resp B/P Pulse Ox O2 Delivery O2 Flow Rate FiO2 08/20/16 12:11 65 110/63 08/20/16 07:49 98.2 18 96 08/18/16 14:48 Room Air Intake and Output 08/19/16 08/19/16 08/20/16 15:00 23:00 07:00 Intake Total 300 ml 1930 ml 975 ml Output Total 1000 ml 800 ml Balance 300 ml 930 ml 175 ml Exam Respiratory: clear to auscultation Cardiovascular: regular rate and rhythm Gastrointestinal: soft Musculoskeletal: nl extremities to inspection Results Result Diagram: 08/20/16 0526 08/20/16 0526 Results 24 hrs Laboratory Tests Test 08/20/16 05:26 White Blood Count 7.8 Red Blood Count 3.34 L Hemoglobin 10.7 L Hematocrit 32.1 L Mean Corpuscular Volume 96.1 Mean Corpuscular Hemoglobin 32.0 Mean Corpuscular Hemoglobin Concent 33.3 Red Cell Distribution Width 13.2 Platelet Count 148 Mean Platelet Volume 10.6 H Neutrophils % 72.9 Lymphocytes % 9.9 L Monocytes % 15.2 H Eosinophils % 0.6 Basophils % 0.5 Nucleated Red Blood Cells % 0.0 Neutrophils # 5.7 Lymphocytes # 0.8 Monocytes # 1.2 H Eosinophils # 0.1 Basophils # 0.0 Nucleated Red Blood Cells # 0.0 Sodium Level 136 Potassium Level 4.5 Chloride Level 115 H Carbon Dioxide Level 15 L Anion Gap 11 # Blood Urea Nitrogen 57 H Creatinine 3.43 H Glucose Level 108 Calcium Level 8.6 Total Bilirubin 0.2 Direct Bilirubin 0.00 Indirect Bilirubin 0.2 Aspartate Amino Transf (AST/SGOT) 21 Alanine Aminotransferase (ALT/SGPT) 33 Alkaline Phosphatase 65 Total Protein 5.4 #L Albumin 2.6 L Globulin 2.80 Albumin/Globulin Ratio 0.92 Medications Medications Current Medications Dextrose/Sodium Chloride (D5-NS) 1,000 ml @ 70 mls/hr [id number] IV Last administered on 08/20/16 15:14; Admin Dose 70 MLS/HR; Start 08/18/16 at 18:30 Pantoprazole (Protonix Iv) 40 mg DAILY@06 IV Last administered on 08/20/16 06: 13; Admin Dose 40 MG; Start 08/19/16 at 06:00 Amiodarone HCl (Cordarone) 200 mg DAILY PO Last administered on 08/20/16 08:13 ; Admin Dose 200 MG; Start 08/19/16 at 09:00 Apixaban (Eliquis) 2.5 mg BID PO Last administered on 08/20/16 08:14; Admin Dose 2.5 MG; Start 08/18/16 at 21:00 Benzonatate (Tessalon) 100 mg Q8H PRN PO COUGH; Start 08/18/16 at 20:00 Carvedilol (Coreg) 12.5 mg BID PO Last administered on 08/20/16 08:14; Admin Dose 12.5 MG; Start 08/18/16 at 21:00 Cholecalciferol (Vitamin D) 1,000 unit DAILY PO Last administered on 08/19/16 09:33; Admin Dose 1,000 UNIT; Start 08/19/16 at 09:00 Cilostazol (Pletal) 50 mg BID PO Last administered on 08/20/16 08:13; Admin Dose 50 MG; Start 08/18/16 at 21:00 Clopidogrel Bisulfate (plaVIX) 75 mg DAILY PO Last administered on 08/20/16 08 :14; Admin Dose 75 MG; Start 08/19/16 at 09:00 Colesevelam HCl (Welchol) 1,875 mg BID PO Last administered on 08/20/16 08:13 ; Admin Dose 1,875 MG; Start 08/18/16 at 21:00 Diphenoxylate HCl/ Atropine (Lomotil Liquid Cup) 5 ml Q6H PRN PO DIARRHEA; Start 08/18/16 at 20:00 Doxazosin Mesylate (Cardura) 1 mg HS PO Last administered on 08/18/16 21:34; Admin Dose 1 MG; Start 08/18/16 at 21:00 Finasteride (Proscar) 5 mg DAILY PO Last administered on 08/20/16 08:13; Admin Dose 5 MG; Start 08/19/16 at 09:00 Folic Acid (Folic Acid) 1 mg DAILY PO Last administered on 08/20/16 08:14; Admin Dose 1 MG; Start 08/19/16 at 09:00 Gabapentin (Neurontin) 100 mg QHS PO Last administered on 08/19/16 21:22; Admin Dose 100 MG; Start 08/18/16 at 21:00 Hydralazine HCl (Apresoline) 10 mg TID PO Last administered on 08/19/16 09:36 ; Admin Dose 10 MG; Start 08/18/16 at 21:00 Ibuprofen (Motrin) 600 mg Q8 PRN PO PAIN AND/OR INFLAMMATION; Start 08/18/16 at 20:00 Isosorbide Mononitrate (Imdur) 240 mg DAILY PO Last administered on 08/19/16 09:37; Admin Dose 240 MG; Start 08/19/16 at 09:00 Levothyroxine Sodium (Synthroid) 88 mcg DAILY PO Last administered on 08:14; Admin Dose 88 MCG; Start 08/19/16 at 09:00 Loratadine (Claritin) 10 mg DAILY PO Last administered on 08/19/16 09:34; Admin Dose 10 MG; Start 08/19/16 at 09:00 Albuterol (Ventolin Hfa) 2 puff Q6 INH Last administered on 08/20/16 17:07; Admin Dose 2 PUFF; Start 08/18/16 at 20:00 Levofloxacin (Levaquin) 250 mg Q2D@06 PO ; Start 08/21/16 at 06:00 RIAZ CADENA MD August 20, 2016 20:03
[2016-08-20 20:58] VITALS: BP 118/58; RESP 18
[2016-08-20] MEDS: GABAPENTIN 100 MG CAP PO SCH (21:23)
[2016-08-20] MEDS: DOXAZOSIN 1 MG TAB PO SCH (21:23)
[2016-08-20] MEDS: CITRIC ACID/SODIUM CITRATE 15 ML CUP PO SCH (21:27)
[2016-08-21] MEDS: DEXTROSE 5%-0.9% NACL 1,000 ML IV SCH ×2 (03:42→09:38)
[2016-08-21] MEDS: ALBUTEROL 18 GM INHALER INH SCH ×3 (05:12→18:20)
[2016-08-21] MEDS: PANTOPRAZOLE 40 MG INJ IV SCH (05:12)
[2016-08-21] MEDS: LEVOFLOXACIN 250 MG TAB PO SCH (05:12)
[2016-08-21 05:58] LABS: CALCIUM 8.7 mg/dl (8.4-10.2)
[2016-08-21 08:14] VITALS: BP 145/70; RESP 17
[2016-08-21] MEDS: CITRIC ACID/SODIUM CITRATE 15 ML CUP PO SCH ×2 (09:24→21:25)
[2016-08-21] MEDS: ISOSORBIDE MONONITRATE(SR)60 MG TAB PO SCH (09:25)
[2016-08-21] MEDS: FOLIC ACID 1 MG TAB PO SCH (09:25)
[2016-08-21] MEDS: CILOSTAZOL 100 MG TAB PO SCH ×2 (09:25→21:27)
[2016-08-21] MEDS: CLOPIDOGREL 75 MG TAB PO SCH (09:25)
[2016-08-21] MEDS: LORATADINE 10 MG TAB PO SCH (09:26)
[2016-08-21] MEDS: FINASTERIDE 5 MG TAB PO SCH (09:26)
[2016-08-21] MEDS: COLESEVELAM 625 MG TAB PO SCH ×2 (09:26→21:28)
[2016-08-21] MEDS: APIXABAN 5 MG TABLET PO SCH ×2 (09:26→21:27)
[2016-08-21] MEDS: LEVOTHYROXINE 88 MCG TAB PO SCH (09:27)
[2016-08-21] MEDS: CHOLECALCIFEROL 1,000 UNIT TAB PO SCH (09:27)
[2016-08-21] MEDS: AMIODARONE 200 MG TAB PO SCH (09:27)
--- NOTE | 2016-08-21 10:22 | PN ---
Date/Time of Note Date/Time of Note DATE: 08/21/16 TIME: 10:21 Assessment/Plan VTE Prophylaxis VTE Prophylaxis Intervention: ambulation Lines/Catheters IV C[facility] Type (from [facility]): Peripheral IV Urinary Cath still in place: No Assessment/Plan Chief Complaint/Hosp Course 1. Acute kidney injury due to prerenal azotemia. 2. Dehydration.better 3. The patient has gastroenteritis. Rule out Clostridium difficile colitis. 4. The patient has hypertension. 5. cad 6. hx ptca. 7. The patient has anemia. 8. The patient _ashd 9. percutaneous transluminal coronary angioplasty and stenting. 10 UTI 11 metabolic acidosis Problems: Assessment/Plan PLAN ANTIBIOTIC IV FLUID bicitra Subjective 24 Hr Interval Summary Constitutional: no complaints Eyes: no complaints Respiratory: no complaints Gastrointestinal: no complaints Exam/Review of Systems Vital Signs Vitals Vital Signs Date Time Temp Pulse Resp B/P Pulse Ox O2 Delivery O2 Flow Rate FiO2 08/21/16 08:14 98.8 72 17 145/70 94 08/18/16 14:48 Room Air Intake and Output 08/20/16 08/20/16 08/21/16 15:00 23:00 07:00 Intake Total 1000 ml 2180 ml 1290 ml Output Total 800 ml 380 ml Balance 1000 ml 1380 ml 910 ml Exam Constitutional: alert, oriented Head: normocephalic Eyes: nl conjunctiva Neck: supple Respiratory: clear to auscultation Cardiovascular: regular rate and rhythm Gastrointestinal: soft Genitourinary - Male: nl penis Musculoskeletal: nl extremities to inspection Results Result Diagram: 08/20/16 0526 08/21/16 0430 Results 24 hrs Laboratory Tests Test 08/21/16 04:30 Sodium Level 138 Potassium Level 4.0 Chloride Level 116 H Carbon Dioxide Level 15 L Anion Gap 11 Blood Urea Nitrogen 50 H Creatinine 3.00 H Glucose Level 110 Calcium Level 8.7 Medications Medications Current Medications Dextrose/Sodium Chloride (D5-NS) 1,000 ml @ 70 mls/hr [id number] IV Last administered on 08/21/16 09:38; Admin Dose 70 MLS/HR; Start 08/18/16 at 18:30 Pantoprazole (Protonix Iv) 40 mg DAILY@06 IV Last administered on 08/21/16 05: 12; Admin Dose 40 MG; Start 08/19/16 at 06:00 Amiodarone HCl (Cordarone) 200 mg DAILY PO Last administered on 08/21/16 09:27 ; Admin Dose 200 MG; Start 08/19/16 at 09:00 Apixaban (Eliquis) 2.5 mg BID PO Last administered on 08/21/16 09:26; Admin Dose 2.5 MG; Start 08/18/16 at 21:00 Benzonatate (Tessalon) 100 mg Q8H PRN PO COUGH; Start 08/18/16 at 20:00 Carvedilol (Coreg) 12.5 mg BID PO Last administered on 08/21/16 09:25; Admin Dose 12.5 MG; Start 08/18/16 at 21:00 Cholecalciferol (Vitamin D) 1,000 unit DAILY PO Last administered on 08/21/16 09:27; Admin Dose 1,000 UNIT; Start 08/19/16 at 09:00 Cilostazol (Pletal) 50 mg BID PO Last administered on 08/21/16 09:25; Admin Dose 50 MG; Start 08/18/16 at 21:00 Clopidogrel Bisulfate (plaVIX) 75 mg DAILY PO Last administered on 08/21/16 09 :25; Admin Dose 75 MG; Start 08/19/16 at 09:00 Colesevelam HCl (Welchol) 1,875 mg BID PO Last administered on 08/21/16 09:26 ; Admin Dose 1,875 MG; Start 08/18/16 at 21:00 Diphenoxylate HCl/ Atropine (Lomotil Liquid Cup) 5 ml Q6H PRN PO DIARRHEA; Start 08/18/16 at 20:00 Doxazosin Mesylate (Cardura) 1 mg HS PO Last administered on 08/20/16 21:23; Admin Dose 1 MG; Start 08/18/16 at 21:00 Finasteride (Proscar) 5 mg DAILY PO Last administered on 08/21/16 09:26; Admin Dose 5 MG; Start 08/19/16 at 09:00 Folic Acid (Folic Acid) 1 mg DAILY PO Last administered on 08/21/16 09:25; Admin Dose 1 MG; Start 08/19/16 at 09:00 Gabapentin (Neurontin) 100 mg QHS PO Last administered on 08/20/16 21:23; Admin Dose 100 MG; Start 08/18/16 at 21:00 Hydralazine HCl (Apresoline) 10 mg TID PO Last administered on 08/21/16 09:24 ; Admin Dose 10 MG; Start 08/18/16 at 21:00 Ibuprofen (Motrin) 600 mg Q8 PRN PO PAIN AND/OR INFLAMMATION; Start 08/18/16 at 20:00 Isosorbide Mononitrate (Imdur) 240 mg DAILY PO Last administered on 08/21/16 09:25; Admin Dose 240 MG; Start 08/19/16 at 09:00 Levothyroxine Sodium (Synthroid) 88 mcg DAILY PO Last administered on 09:27; Admin Dose 88 MCG; Start 08/19/16 at 09:00 Loratadine (Claritin) 10 mg DAILY PO Last administered on 08/21/16 09:26; Admin Dose 10 MG; Start 08/19/16 at 09:00 Albuterol (Ventolin Hfa) 2 puff Q6 INH Last administered on 08/21/16 05:12; Admin Dose 2 PUFF; Start 08/18/16 at 20:00 Levofloxacin (Levaquin) 250 mg Q2D@06 PO Last administered on 08/21/16 05:12; Admin Dose 250 MG; Start 08/21/16 at 06:00 Citric Acid/ Sodium Citrate (Bicitra) 30 ml BID PO Last administered on 09:24; Admin Dose 30 ML; Start 08/20/16 at 21:00 EUFEMIA MALDONADO August 21, 2016 10:22
[2016-08-21 20:00] VITALS: BP 115/56
[2016-08-21] MEDS: GABAPENTIN 100 MG CAP PO SCH (21:27)
[2016-08-21] MEDS: DOXAZOSIN 1 MG TAB PO SCH (21:27)
[2016-08-21] MEDS: TOBRAMYCIN 0.3% 5 ML OPH BOTH EYES SCH (21:27)
[2016-08-22] MEDS: ALBUTEROL 18 GM INHALER INH SCH ×4 (00:01→17:57)
[2016-08-22] MEDS: DEXTROSE 5%-0.9% NACL 1,000 ML IV SCH ×2 (05:58→18:21)
[2016-08-22] MEDS: PANTOPRAZOLE 40 MG INJ IV SCH (05:58)
[2016-08-22 06:09] LABS: ADD SCAN DIFF NO
[2016-08-22 06:14] LABS: BASOPHIL # 0.1 10^3/ul (0.0-0.1); BASOPHILS % 0.8 % (0.0-2.0); EOSINOPHILS % 0.4 % (0.0-7.0); HEMATOCRIT 30.1 % (42.0-52.0); LYMPHOCYTES % 11.6 % (15.0-51.0); MEAN CORPUSCULAR HEMOGLOBIN 32.3 pg (29.0-33.0); MEAN CORPUSCULAR HGB CONC 33.2 g/dl (32.0-37.0); MEAN CORPUSCULAR VOLUME 97.1 fl (82.0-101.0); MEAN PLATELET VOLUME 10.7 fl (7.4-10.4); NEUTROPHIL # 6.1 10^3/ul (1.6-7.5); NEUTROPHILS % 71.6 % (39.0-77.0); PLATELET COUNT 165 10^3/UL (140-415); RED CELL DISTRIBUTION WIDTH 13.3 % (11.5-14.5); WHITE BLOOD COUNT 8.4 10^3/ul (4.8-10.8)
[2016-08-22 06:30] LABS: POTASSIUM 3.9 mmol/L (3.5-5.1)
[2016-08-22 06:32] LABS: CREATININE 2.92 mg/dl (0.61-1.24)
[2016-08-22 06:33] LABS: URIC ACID 8.7 mg/dl (3.1-7.9)
[2016-08-22 06:34] LABS: CALCIUM 8.7 mg/dl (8.4-10.2)
[2016-08-22 08:15] VITALS: BP 134/58; RESP 19
--- NOTE | 2016-08-22 08:29 | PN ---
DATE: 08/21/2016 SUBJECTIVE: The patient states that his urine is remaining bloody and he does urinate frequently. OBJECTIVE VITAL SIGNS: Show a temperature of 98.8, pulse 72, respirations 17, blood pressure 145/70. ABDOMEN: Soft. External genitalia are normal. LABORATORY DATA: CBC shows a white count of 7.8, hemoglobin 10.7, hematocrit 32.1. BUN is 50, crea tinine 3.0. Sodium 138, potassium 4.0, chloride 116, CO2 . Urinalysis still shows that the ur ine is colored red. It has 10 to 25 WBCs, more than 200 RBCs, and 3+ occult blood. Urine culture d id show 100,000 E. coli, is sensitive to all the antibiotics. The patient is already on Levaquin an d repeat urine culture, while he is on the antibiotic, showed no growth. The urine cytology, that w as ordered, is still pending. IMPRESSION: Urinary tract infection and hematuria. Hematuria is most likely related to his infecti on. PLAN: To continue the antibiotic and await the cytology report. If he continues to have hematuria, after the treatment of the infection, then one may need to do a cystoscopy to make sure there is no bladder tumor. Dictated By: GEETA SHAH/MARCE Conf#: [id number] DID#: [id number]
[2016-08-22] MEDS: FOLIC ACID 1 MG TAB PO SCH (08:33)
[2016-08-22] MEDS: TOBRAMYCIN 0.3% 5 ML OPH BOTH EYES SCH ×2 (08:33→21:09)
[2016-08-22] MEDS: CLOPIDOGREL 75 MG TAB PO SCH (08:33)
[2016-08-22] MEDS: FINASTERIDE 5 MG TAB PO SCH (08:34)
[2016-08-22] MEDS: AMIODARONE 200 MG TAB PO SCH (08:34)
[2016-08-22] MEDS: CITRIC ACID/SODIUM CITRATE 15 ML CUP PO SCH ×2 (08:34→21:08)
[2016-08-22] MEDS: CHOLECALCIFEROL 1,000 UNIT TAB PO SCH (08:34)
[2016-08-22] MEDS: LORATADINE 10 MG TAB PO SCH (08:34)
[2016-08-22] MEDS: CILOSTAZOL 100 MG TAB PO SCH ×2 (08:34→21:10)
[2016-08-22] MEDS: LEVOTHYROXINE 88 MCG TAB PO SCH (08:34)
[2016-08-22] MEDS: COLESEVELAM 625 MG TAB PO SCH ×2 (08:35→21:09)
[2016-08-22] MEDS: APIXABAN 5 MG TABLET PO SCH ×3 (09:00→21:10)
--- NOTE | 2016-08-22 11:17 | PN ---
Date/Time of Note Date/Time of Note DATE: 08/22/16 TIME: 11:14 Assessment/Plan VTE Prophylaxis VTE Prophylaxis Intervention: ambulation Lines/Catheters [facility] Type [facility] Peripheral IV Urinary Cath still in place: No Assessment/Plan Chief Complaint/Hosp Course 1. Acute kidney injury due to prerenal azotemia. 2. Dehydration.better 3. The patient has gastroenteritis. Rule out Clostridium difficile colitis. 4. The patient has hypertension. 5. cad 6. hx ptca. 7. The patient has anemia. 8. The patient _ashd 9. percutaneous transluminal coronary angioplasty and stenting. 10 UTI 11 metabolic acidosis 12. Gout, start allopurinol Problems: Assessment/Plan 1. Continue antibiotics 2. Start allopurinol 100 mg BID po Subjective 24 Hr Interval Summary Constitutional: no complaints Eyes: no complaints Exam/Review of Systems Vital Signs Vitals Vital Signs Date Time Temp Pulse Resp B/P Pulse Ox O2 Delivery O2 Flow Rate FiO2 08/22/16 08:15 97.0 74 19 134/58 74 08/18/16 14:48 Room Air Intake and Output 08/21/16 08/21/16 08/22/16 15:00 23:00 07:00 Intake Total 840 ml 640 ml 1480 ml Output Total 300 ml 780 ml Balance 840 ml 340 ml 700 ml Exam Constitutional: alert, oriented Head: normocephalic Eyes: nl conjunctiva ENMT: nl external ears & nose Respiratory: clear to auscultation Cardiovascular: regular rate and rhythm Skin: other (petechia) Results Result Diagram: 08/22/16 0544 08/22/16 0544 Results 24 hrs Laboratory Tests Test 08/22/16 05:44 White Blood Count 8.4 Red Blood Count 3.10 L Hemoglobin 10.0 L Hematocrit 30.1 L Mean Corpuscular Volume 97.1 Mean Corpuscular Hemoglobin 32.3 Mean Corpuscular Hemoglobin Concent 33.2 Red Cell Distribution Width 13.3 Platelet Count 165 Mean Platelet Volume 10.7 H Neutrophils % 71.6 Lymphocytes % 11.6 L Monocytes % 12.0 H Eosinophils % 0.4 Basophils % 0.8 Nucleated Red Blood Cells % 0.0 Neutrophils # 6.1 Lymphocytes # 1.0 Monocytes # 1.0 H Eosinophils # 0.0 Basophils # 0.1 Nucleated Red Blood Cells # 0.0 Sodium Level 143 Potassium Level 3.9 Chloride Level 114 H Carbon Dioxide Level 18 L Anion Gap 15 Blood Urea Nitrogen 47 H Creatinine 2.92 H Glucose Level 102 Hemoglobin A1c 6.0 H Uric Acid 8.7 H Calcium Level 8.7 Medications Medications Current Medications Dextrose/Sodium Chloride (D5-NS) 1,000 ml @ 70 mls/hr [id number] IV Last administered on 08/22/16 05:58; Admin Dose 70 MLS/HR; Start 08/18/16 at 18:30 Pantoprazole (Protonix Iv) 40 mg DAILY@06 IV Last administered on 08/22/16 05: 58; Admin Dose 40 MG; Start 08/19/16 at 06:00 Amiodarone HCl (Cordarone) 200 mg DAILY PO Last administered on 08/22/16 08:34 ; Admin Dose 200 MG; Start 08/19/16 at 09:00 Apixaban (Eliquis) 2.5 mg BID PO Last administered on 08/21/16 21:27; Admin Dose 2.5 MG; Start 08/18/16 at 21:00 Benzonatate (Tessalon) 100 mg Q8H PRN PO COUGH; Start 08/18/16 at 20:00 Carvedilol (Coreg) 12.5 mg BID PO Last administered on 08/22/16 08:36; Admin Dose 12.5 MG; Start 08/18/16 at 21:00 Cholecalciferol (Vitamin D) 1,000 unit DAILY PO Last administered on 08/22/16 08:34; Admin Dose 1,000 UNIT; Start 08/19/16 at 09:00 Cilostazol (Pletal) 50 mg BID PO Last administered on 08/22/16 08:34; Admin Dose 50 MG; Start 08/18/16 at 21:00 Clopidogrel Bisulfate (plaVIX) 75 mg DAILY PO Last administered on 08/22/16 08 :33; Admin Dose 75 MG; Start 08/19/16 at 09:00 Colesevelam HCl (Welchol) 1,875 mg BID PO Last administered on 08/22/16 08:35 ; Admin Dose 1,875 MG; Start 08/18/16 at 21:00 Diphenoxylate HCl/ Atropine (Lomotil Liquid Cup) 5 ml Q6H PRN PO DIARRHEA; Start 08/18/16 at 20:00 Doxazosin Mesylate (Cardura) 1 mg HS PO Last administered on 08/21/16 21:27; Admin Dose 1 MG; Start 08/18/16 at 21:00 Finasteride (Proscar) 5 mg DAILY PO Last administered on 08/22/16 08:34; Admin Dose 5 MG; Start 08/19/16 at 09:00 Folic Acid (Folic Acid) 1 mg DAILY PO Last administered on 08/22/16 08:33; Admin Dose 1 MG; Start 08/19/16 at 09:00 Gabapentin (Neurontin) 100 mg QHS PO Last administered on 08/21/16 21:27; Admin Dose 100 MG; Start 08/18/16 at 21:00 Hydralazine HCl (Apresoline) 10 mg TID PO Last administered on 08/22/16 08:36 ; Admin Dose 10 MG; Start 08/18/16 at 21:00 Ibuprofen (Motrin) 600 mg Q8 PRN PO PAIN AND/OR INFLAMMATION; Start 08/18/16 at 20:00 Isosorbide Mononitrate (Imdur) 240 mg DAILY PO Last administered on 08/21/16 09:25; Admin Dose 240 MG; Start 08/19/16 at 09:00 Levothyroxine Sodium (Synthroid) 88 mcg DAILY PO Last administered on 08:34; Admin Dose 88 MCG; Start 08/19/16 at 09:00 Loratadine (Claritin) 10 mg DAILY PO Last administered on 08/22/16 08:34; Admin Dose 10 MG; Start 08/19/16 at 09:00 Albuterol (Ventolin Hfa) 2 puff Q6 INH Last administered on 08/22/16 05:59; Admin Dose 2 PUFF; Start 08/18/16 at 20:00 Levofloxacin (Levaquin) 250 mg Q2D@06 PO Last administered on 08/21/16 05:12; Admin Dose 250 MG; Start 08/21/16 at 06:00 Citric Acid/ Sodium Citrate (Bicitra) 30 ml BID PO Last administered on 08:34; Admin Dose 30 ML; Start 08/20/16 at 21:00 Tobramycin Sulfate (Tobrex 0.3% Oph Drop) 2 drop BID BOTH EYES Last administered on 08/22/16t 08:33; Admin Dose 2 DROP; Start 08/21/16 at 21:00 EUFEMIA MALDONADO August 22, 2016 11:17
[2016-08-22] MEDS: ISOSORBIDE MONONITRATE(SR)60 MG TAB PO SCH (11:27)
[2016-08-22] MEDS: ALLOPURINOL 100 MG TAB PO SCH (11:27)
--- NOTE | 2016-08-22 13:12 | PN ---
DATE: 08/22/2016 SUBJECTIVE: Urinary hematuria. The patient states that he is still has hematuria and in fact, I gilmore d him try to urinate in the urinal. He ended urinating on the floor, but the urine does have blood stain in it. OBJECTIVE: VITAL SIGNS: Temperature is 97.0, pulse is 74, respirations 19, blood pressure 134/58. ABDOMEN: Soft. LABORATORY DATA: CBC shows a white count of 8.4, hemoglobin 10.0, hematocrit 30.1. The BUN is 47, creatinine 2.92. Electrolytes are normal. The urine culture did show E. coli that is sensitive to all antibiotics, and he is on Levaquin and that should help. We did also order urine cytology for h im, but that is still pending. RECOMMENDATION: To continue the antibiotic and await the urine cytology. Should he continue to hav e hematuria, then I will have to do a cystoscopy on him. Dictated By: GEETA SHAH/MARCE Conf#: [id number] DID#: [id number]
[2016-08-22 20:38] VITALS: BP 116/57; RESP 16
[2016-08-22] MEDS: GABAPENTIN 100 MG CAP PO SCH (21:10)
[2016-08-22] MEDS: DOXAZOSIN 1 MG TAB PO SCH (21:11)
[2016-08-23] MEDS: PANTOPRAZOLE 40 MG INJ IV SCH (05:53)
[2016-08-23] MEDS: LEVOFLOXACIN 250 MG TAB PO SCH (05:53)
[2016-08-23 06:19] LABS: ADD SCAN DIFF NO
[2016-08-23] MEDS: ALBUTEROL 18 GM INHALER INH SCH ×5 (06:21→23:23)
[2016-08-23 06:22] LABS: BASOPHILS % 0.5 % (0.0-2.0); EOSINOPHILS # 0.1 10^3/ul (0.0-0.5); EOSINOPHILS % 0.8 % (0.0-7.0); HEMATOCRIT 29.1 % (42.0-52.0); HEMOGLOBIN 9.5 g/dl (14.0-18.0); LYMPHOCYTES # 0.9 10^3/ul (0.8-2.9); LYMPHOCYTES % 10.8 % (15.0-51.0); MEAN CORPUSCULAR HEMOGLOBIN 31.6 pg (29.0-33.0); MEAN CORPUSCULAR HGB CONC 32.6 g/dl (32.0-37.0); MEAN CORPUSCULAR VOLUME 96.7 fl (82.0-101.0); MONOCYTE # 0.9 10^3/ul (0.3-0.9); MONOCYTES % 11.4 % (0.0-11.0); NEUTROPHILS % 74.9 % (39.0-77.0); PLATELET COUNT 154 10^3/UL (140-415); RED BLOOD COUNT 3.01 10^6/ul (4.70-6.10); RED CELL DISTRIBUTION WIDTH 13.8 % (11.5-14.5)
[2016-08-23 06:46] LABS: POTASSIUM 3.8 mmol/L (3.5-5.1)
[2016-08-23 06:48] LABS: CREATININE 2.69 mg/dl (0.61-1.24)
[2016-08-23 06:49] LABS: CALCIUM 8.5 mg/dl (8.4-10.2)
[2016-08-23 08:04] VITALS: BP 137/63; RESP 19
[2016-08-23] MEDS: DEXTROSE 5%-0.9% NACL 1,000 ML IV SCH (08:20)
[2016-08-23] MEDS: CHOLECALCIFEROL 1,000 UNIT TAB PO SCH (08:22)
[2016-08-23] MEDS: FOLIC ACID 1 MG TAB PO SCH (08:22)
[2016-08-23] MEDS: LORATADINE 10 MG TAB PO SCH (08:22)
[2016-08-23] MEDS: CITRIC ACID/SODIUM CITRATE 15 ML CUP PO SCH ×2 (08:22→21:47)
[2016-08-23] MEDS: AMIODARONE 200 MG TAB PO SCH (08:23)
[2016-08-23] MEDS: FINASTERIDE 5 MG TAB PO SCH (08:23)
[2016-08-23] MEDS: LEVOTHYROXINE 88 MCG TAB PO SCH (08:23)
[2016-08-23] MEDS: ALLOPURINOL 100 MG TAB PO SCH (08:23)
[2016-08-23] MEDS: CILOSTAZOL 100 MG TAB PO SCH ×2 (08:23→21:50)
[2016-08-23] MEDS: CLOPIDOGREL 75 MG TAB PO SCH (08:23)
[2016-08-23] MEDS: TOBRAMYCIN 0.3% 5 ML OPH BOTH EYES SCH ×2 (08:24→21:54)
[2016-08-23] MEDS: APIXABAN 5 MG TABLET PO SCH ×2 (08:24→21:00)
[2016-08-23] MEDS: COLESEVELAM 625 MG TAB PO SCH ×2 (08:24→21:50)
[2016-08-23] MEDS: ISOSORBIDE MONONITRATE(SR)60 MG TAB PO SCH (11:56)
[2016-08-23 14:57] VITALS: BP 105/56; PULSE 65
[2016-08-23] MEDS ORDERED: FUROSEMIDE 40 MG INJ IV ONE ×2 (15:00→23:00)
--- NOTE | 2016-08-23 16:48 | PN ---
Date/Time of Note Date/Time of Note DATE: 08/23/16 TIME: 16:46 Assessment/Plan VTE Prophylaxis VTE Prophylaxis Intervention: other Lines/Catheters IV [facility]ter Type (from [facility]): Peripheral IV Urinary Cath still in place: No Assessment/Plan Chief Complaint/Hosp Course IMPRESSION: 1. Acute kidney injury due to prerenal azotemia. 2. Dehydration.better 3. The patient has gastroenteritis. Rule out Clostridium difficile colitis.BETTER 4. The patient has hypertension. 5. cad 6. hx ptca. 7. The patient has anemia. 8. The patient _ashd 9. percutaneous transluminal coronary angioplasty and stenting. 10 UTI ECOLI 11 metabolic acidosis PLAN ANTIBIOTIC IV FLUID DC bicitra ANTIBIOTIC LASIX Problems: Subjective 24 Hr Interval Summary Cardiovascular: no complaints Gastrointestinal: no complaints, No diarrhea Exam/Review of Systems Vital Signs Vitals Vital Signs Date Time Temp Pulse Resp B/P Pulse Ox O2 Delivery O2 Flow Rate FiO2 08/23/16 14:57 98.4 65 105/56 08/23/16 08:04 19 92 08/22/16 09:00 Room Air Intake and Output 08/22/16 08/22/16 08/23/16 15:00 23:00 07:00 Intake Total 2100 ml 700 ml Output Total 1350 ml Balance 750 ml 700 ml Exam Neck: supple Respiratory: clear to auscultation Cardiovascular: regular rate and rhythm Gastrointestinal: bowel sounds, soft Extremities: edema (+) Results Result Diagram: 08/23/1652108/23/16 0522 Results 24 hrs Laboratory Tests Test 08/23/16 05:22 White Blood Count 8.0 Red Blood Count 3.01 L Hemoglobin 9.5 L Hematocrit 29.1 L Mean Corpuscular Volume 96.7 Mean Corpuscular Hemoglobin 31.6 Mean Corpuscular Hemoglobin Concent 32.6 Red Cell Distribution Width 13.8 Platelet Count 154 Mean Platelet Volume 11.0 H Neutrophils % 74.9 Lymphocytes % 10.8 L Monocytes % 11.4 H Eosinophils % 0.8 Basophils % 0.5 Nucleated Red Blood Cells % 0.0 Neutrophils # 6.0 Lymphocytes # 0.9 Monocytes # 0.9 Eosinophils # 0.1 Basophils # 0.0 Nucleated Red Blood Cells # 0.0 Sodium Level 143 Potassium Level 3.8 Chloride Level 118 H Carbon Dioxide Level 18 L Anion Gap 11 Blood Urea Nitrogen 42 H Creatinine 2.69 H Glucose Level 141 Calcium Level 8.5 Medications Medications Current Medications Amiodarone HCl (Cordarone) 200 mg DAILY PO Last administered on 08/23/16 08:23 ; Admin Dose 200 MG; Start 08/19/16 at 09:00 Apixaban (Eliquis) 2.5 mg BID PO Last administered on 08/21/16 21:27; Admin Dose 2.5 MG; Start 08/18/16 at 21:00 Benzonatate (Tessalon) 100 mg Q8H PRN PO COUGH Last administered on 08/23/16 08:24; Admin Dose 100 MG; Start 08/18/16 at 20:00 Carvedilol (Coreg) 12.5 mg BID PO Last administered on 08/23/16 08:23; Admin Dose 12.5 MG; Start 08/18/16 at 21:00 Cholecalciferol (Vitamin D) 1,000 unit DAILY PO Last administered on 08/23/16 08:22; Admin Dose 1,000 UNIT; Start 08/19/16 at 09:00 Cilostazol (Pletal) 50 mg BID PO Last administered on 08/23/16 08:23; Admin Dose 50 MG; Start 08/18/16 at 21:00 Clopidogrel Bisulfate (plaVIX) 75 mg DAILY PO Last administered on 08/23/16 08 :23; Admin Dose 75 MG; Start 08/19/16 at 09:00 Colesevelam HCl (Welchol) 1,875 mg BID PO Last administered on 08/23/16 08:24 ; Admin Dose 1,875 MG; Start 08/18/16 at 21:00 Diphenoxylate HCl/ Atropine (Lomotil Liquid Cup) 5 ml Q6H PRN PO DIARRHEA; Start 08/18/16 at 20:00 Doxazosin Mesylate (Cardura) 1 mg HS PO Last administered on 08/22/16 21:11; Admin Dose 1 MG; Start 08/18/16 at 21:00 Finasteride (Proscar) 5 mg DAILY PO Last administered on 08/23/16 08:23; Admin Dose 5 MG; Start 08/19/16 at 09:00 Folic Acid (Folic Acid) 1 mg DAILY PO Last administered on 08/23/16 08:22; Admin Dose 1 MG; Start 08/19/16 at 09:00 Gabapentin (Neurontin) 100 mg QHS PO Last administered on 08/22/16 21:10; Admin Dose 100 MG; Start 08/18/16 at 21:00 Hydralazine HCl (Apresoline) 10 mg TID PO Last administered on 08/23/16 08:22 ; Admin Dose 10 MG; Start 08/18/16 at 21:00 Ibuprofen (Motrin) 600 mg Q8 PRN PO PAIN AND/OR INFLAMMATION; Start 08/18/16 at 20:00 Isosorbide Mononitrate (Imdur) 240 mg DAILY PO Last administered on 08/23/16 11:56; Admin Dose 240 MG; Start 08/19/16 at 09:00 Levothyroxine Sodium (Synthroid) 88 mcg DAILY PO Last administered on 08:23; Admin Dose 88 MCG; Start 08/19/16 at 09:00 Loratadine (Claritin) 10 mg DAILY PO Last administered on 08/23/16 08:22; Admin Dose 10 MG; Start 08/19/16 at 09:00 Albuterol (Ventolin Hfa) 2 puff Q6 INH Last administered on 08/23/16 11:55; Admin Dose 2 PUFF; Start 08/18/16 at 20:00 Levofloxacin (Levaquin) 250 mg Q2D@06 PO Last administered on 08/23/16 05:53; Admin Dose 250 MG; Start 08/21/16 at 06:00 Citric Acid/ Sodium Citrate (Bicitra) 30 ml BID PO Last administered on 08:22; Admin Dose 30 ML; Start 08/20/16 at 21:00 Tobramycin Sulfate (Tobrex 0.3% Oph Drop) 2 drop BID BOTH EYES Last administered on 08/23/16 08:24; Admin Dose 2 DROP; Start 08/21/16 at 21:00 Allopurinol (Zyloprim) 100 mg DAILY PO Last administered on 08/23/16 08:23; Admin Dose 100 MG; Start 08/22/16 at 11:30 Furosemide (Lasix) 40 mg ONCE ONCE IV ; Start 08/23/16 at 23:00; Stop 08/23/16 at 23:01 Pantoprazole (Protonix Tab) 40 mg DAILY@06 PO ; Start 08/24/16 at 06:00 RIAZ CADENA MD August 23, 2016 16:48
[2016-08-23 20:34] VITALS: BP 115/54; RESP 18
[2016-08-23] MEDS: DOXAZOSIN 1 MG TAB PO SCH (21:00)
[2016-08-23] MEDS: GABAPENTIN 100 MG CAP PO SCH (21:53)
[2016-08-24 05:05] LABS: ADD SCAN DIFF NO
[2016-08-24 05:07] LABS: BASOPHILS % 0.3 % (0.0-2.0); EOSINOPHILS # 0.1 10^3/ul (0.0-0.5); EOSINOPHILS % 1.1 % (0.0-7.0); HEMATOCRIT 29.7 % (42.0-52.0); HEMOGLOBIN 9.7 g/dl (14.0-18.0); LYMPHOCYTES # 1.2 10^3/ul (0.8-2.9); LYMPHOCYTES % 15.7 % (15.0-51.0); MEAN CORPUSCULAR HEMOGLOBIN 31.9 pg (29.0-33.0); MEAN CORPUSCULAR HGB CONC 32.7 g/dl (32.0-37.0); MEAN CORPUSCULAR VOLUME 97.7 fl (82.0-101.0); MEAN PLATELET VOLUME 10.8 fl (7.4-10.4); MONOCYTE # 0.8 10^3/ul (0.3-0.9); MONOCYTES % 10.8 % (0.0-11.0); NEUTROPHIL # 5.3 10^3/ul (1.6-7.5); NEUTROPHILS % 70.8 % (39.0-77.0); PLATELET COUNT 175 10^3/UL (140-415); RED BLOOD COUNT 3.04 10^6/ul (4.70-6.10); RED CELL DISTRIBUTION WIDTH 13.8 % (11.5-14.5); WHITE BLOOD COUNT 7.5 10^3/ul (4.8-10.8)
[2016-08-24 05:31] LABS: ALBUMIN 2.6 g/dl (3.3-4.9); POTASSIUM 3.8 mmol/L (3.5-5.1)
[2016-08-24 05:33] LABS: BILIRUBIN,INDIRECT 0.2 mg/dl (0-1.1); BILIRUBIN,TOTAL 0.2 mg/dl (0.2-1.3); CREATININE 2.86 mg/dl (0.61-1.24)
[2016-08-24 05:34] LABS: ALBUMIN/GLOBULIN RATIO 0.83; CALCIUM 8.8 mg/dl (8.4-10.2); TOTAL PROTEIN 5.7 g/dl (6.1-8.1)
[2016-08-24] MEDS: ALBUTEROL 18 GM INHALER INH SCH ×3 (06:38→18:00)
[2016-08-24] MEDS: PANTOPRAZOLE (EC) 40 MG TAB PO SCH (06:50)
[2016-08-24 08:30] VITALS: BP 94/52; RESP 15
[2016-08-24] MEDS: FINASTERIDE 5 MG TAB PO SCH (08:56)
[2016-08-24] MEDS: TOBRAMYCIN 0.3% 5 ML OPH BOTH EYES SCH ×2 (08:56→20:49)
[2016-08-24] MEDS: CITRIC ACID/SODIUM CITRATE 15 ML CUP PO SCH ×2 (08:57→20:48)
[2016-08-24] MEDS: CLOPIDOGREL 75 MG TAB PO SCH (08:58)
[2016-08-24] MEDS: CHOLECALCIFEROL 1,000 UNIT TAB PO SCH (08:58)
[2016-08-24] MEDS: COLESEVELAM 625 MG TAB PO SCH ×2 (08:58→20:50)
[2016-08-24] MEDS: FOLIC ACID 1 MG TAB PO SCH (08:58)
[2016-08-24] MEDS: ALLOPURINOL 100 MG TAB PO SCH (08:58)
[2016-08-24] MEDS: APIXABAN 5 MG TABLET PO SCH ×3 (08:59→20:48)
[2016-08-24] MEDS: LORATADINE 10 MG TAB PO SCH (08:59)
[2016-08-24] MEDS: AMIODARONE 200 MG TAB PO SCH (09:00)
[2016-08-24] MEDS: ISOSORBIDE MONONITRATE(SR)60 MG TAB PO SCH (09:00)
[2016-08-24] MEDS: LEVOTHYROXINE 88 MCG TAB PO SCH (09:31)
[2016-08-24] MEDS: CILOSTAZOL 100 MG TAB PO SCH ×2 (09:31→20:48)
--- NOTE | 2016-08-24 17:16 | PN ---
Date/Time of Note Date/Time of Note DATE: 08/24/16 TIME: 17:15 Assessment/Plan VTE Prophylaxis VTE Prophylaxis Intervention: other Lines/Catheters IV C[facility]ter Type (from [facility] [place] Urinary Cath still in place: No Assessment/Plan Chief Complaint/Hosp Course IMPRESSION: 1. Acute kidney injury due to prerenal azotemia.better 2. Dehydration.better 3. The patient has gastroenteritis. Rule out Clostridium difficile colitis.BETTER 4. The patient has hypertension. 5. cad 6. hx ptca. 7. The patient has anemia. 8. The patient _ashd 9. percutaneous transluminal coronary angioplasty and stenting. 10 UTI ECOLI 11 metabolic acidosis better PLAN ANTIBIOTIC IV FLUID DC bicitra ANTIBIOTIC LASIX pt ot Problems: Subjective 24 Hr Interval Summary Gastrointestinal: no complaints Genitourinary: no complaints Exam/Review of Systems Vital Signs Vitals Vital Signs Date Time Temp Pulse Resp B/P Pulse Ox O2 Delivery O2 Flow Rate FiO2 08/24/16 08:30 98.1 70 15 94/52 97 08/22/16 09:00 Room Air Intake and Output 08/23/16 08/23/16 08/24/16 15:00 23:00 07:00 Intake Total 1170 ml 680 ml Output Total 1750 ml 1550 ml Balance -580 ml -870 ml Exam Neck: supple Respiratory: clear to auscultation Cardiovascular: regular rate and rhythm Gastrointestinal: soft Extremities: edema (better) Results Result Diagram: 08/24/16 0435 08/24/16 0435 Results 24 hrs Laboratory Tests Test 08/24/16 04:35 White Blood Count 7.5 Red Blood Count 3.04 L Hemoglobin 9.7 L Hematocrit 29.7 L Mean Corpuscular Volume 97.7 Mean Corpuscular Hemoglobin 31.9 Mean Corpuscular Hemoglobin Concent 32.7 Red Cell Distribution Width 13.8 Platelet Count 175 Mean Platelet Volume 10.8 H Neutrophils % 70.8 Lymphocytes % 15.7 Monocytes % 10.8 Eosinophils % 1.1 Basophils % 0.3 Nucleated Red Blood Cells % 0.0 Neutrophils # 5.3 Lymphocytes # 1.2 Monocytes # 0.8 Eosinophils # 0.1 Basophils # 0.0 Nucleated Red Blood Cells # 0.0 Sodium Level 144 Potassium Level 3.8 Chloride Level 114 H Carbon Dioxide Level 20 L Anion Gap 14 Blood Urea Nitrogen 44 H Creatinine 2.86 H Glucose Level 96 # Calcium Level 8.8 Total Bilirubin 0.2 Direct Bilirubin 0.00 Indirect Bilirubin 0.2 Aspartate Amino Transf (AST/SGOT) 20 Alanine Aminotransferase (ALT/SGPT) 34 Alkaline Phosphatase 57 Total Protein 5.7 L Albumin 2.6 L Globulin 3.10 Albumin/Globulin Ratio 0.83 Medications Medications Current Medications Amiodarone HCl (Cordarone) 200 mg DAILY PO Last administered on 08/23/16 08:23 ; Admin Dose 200 MG; Start 08/19/16 at 09:00 Apixaban (Eliquis) 2.5 mg BID PO Last administered on 08/21/16 21:27; Admin Dose 2.5 MG; Start 08/18/16 at 21:00 Benzonatate (Tessalon) 100 mg Q8H PRN PO COUGH Last administered on 08/23/16 08:24; Admin Dose 100 MG; Start 08/18/16 at 20:00 Carvedilol (Coreg) 12.5 mg BID PO Last administered on 08/23/16 08:23; Admin Dose 12.5 MG; Start 08/18/16 at 21:00 Cholecalciferol (Vitamin D) 1,000 unit DAILY PO Last administered on 08/24/16 08:58; Admin Dose 1,000 UNIT; Start 08/19/16 at 09:00 Cilostazol (Pletal) 50 mg BID PO Last administered on 08/24/16 09:31; Admin Dose 50 MG; Start 08/18/16 at 21:00 Clopidogrel Bisulfate (plaVIX) 75 mg DAILY PO Last administered on 08/24/16 08 :58; Admin Dose 75 MG; Start 08/19/16 at 09:00 Colesevelam HCl (Welchol) 1,875 mg BID PO Last administered on 08/24/16 08:58 ; Admin Dose 1,875 MG; Start 08/18/16 at 21:00 Diphenoxylate HCl/ Atropine (Lomotil Liquid Cup) 5 ml Q6H PRN PO DIARRHEA; Start 08/18/16 at 20:00 Doxazosin Mesylate (Cardura) 1 mg HS PO Last administered on 08/22/16 21:11; Admin Dose 1 MG; Start 08/18/16 at 21:00 Finasteride (Proscar) 5 mg DAILY PO Last administered on 08/24/16 08:56; Admin Dose 5 MG; Start 08/19/16 at 09:00 Folic Acid (Folic Acid) 1 mg DAILY PO Last administered on 08/24/16 08:58; Admin Dose 1 MG; Start 08/19/16 at 09:00 Gabapentin (Neurontin) 100 mg QHS PO Last administered on 08/23/16 21:53; Admin Dose 100 MG; Start 08/18/16 at 21:00 Hydralazine HCl (Apresoline) 10 mg TID PO Last administered on 08/23/16 08:22 ; Admin Dose 10 MG; Start 08/18/16 at 21:00 Ibuprofen (Motrin) 600 mg Q8 PRN PO PAIN AND/OR INFLAMMATION; Start 08/18/16 at 20:00 Isosorbide Mononitrate (Imdur) 240 mg DAILY PO Last administered on 08/23/16 11:56; Admin Dose 240 MG; Start 08/19/16 at 09:00 Levothyroxine Sodium (Synthroid) 88 mcg DAILY PO Last administered on 09:31; Admin Dose 88 MCG; Start 08/19/16 at 09:00 Loratadine (Claritin) 10 mg DAILY PO Last administered on 08/24/16 08:59; Admin Dose 10 MG; Start 08/19/16 at 09:00 Albuterol (Ventolin Hfa) 2 puff Q6 INH Last administered on 08/24/16 14:10; Admin Dose 2 PUFF; Start 08/18/16 at 20:00 Levofloxacin (Levaquin) 250 mg Q2D@06 PO Last administered on 08/23/16 05:53; Admin Dose 250 MG; Start 08/21/16 at 06:00 Citric Acid/ Sodium Citrate (Bicitra) 30 ml BID PO Last administered on 08:57; Admin Dose 30 ML; Start 08/20/16 at 21:00 Tobramycin Sulfate (Tobrex 0.3% Oph Drop) 2 drop BID BOTH EYES Last administered on 08/24/16 08:56; Admin Dose 2 DROP; Start 08/21/16 at 21:00 Allopurinol (Zyloprim) 100 mg DAILY PO Last administered on 08/24/16 08:58; Admin Dose 100 MG; Start 08/22/16 at 11:30 Pantoprazole (Protonix Tab) 40 mg DAILY@06 PO Last administered on 08/24/16t 06 :50; Admin Dose 40 MG; Start 08/24/16 at 06:00 RIAZ CADENA MD August 24, 2016 17:16
[2016-08-24 20:32] VITALS: BP 123/57; RESP 18
[2016-08-24] MEDS: GABAPENTIN 100 MG CAP PO SCH (20:48)
[2016-08-24] MEDS: DOXAZOSIN 1 MG TAB PO SCH (20:50)
--- NOTE | 2016-08-24 20:52 | PN ---
DATE: 08/24/2016 SUBJECTIVE: Gross hematuria. The patient states that he is voiding well, but his urine remains blo od-tinged. OBJECTIVE: VITAL SIGNS: Temperature is 98.1, blood pressure 94/52, pulse 70, respiration 15. ABDOMEN: Soft. GENITOURINARY: The urine that he is voiding in the urinal is bloody. There are no blood clots. LABORATORY DATA: His CBC shows a white count of 7.5, hemoglobin 9.7, hematocrit 29.7, platelet coun t 175,000. BUN is 44, creatinine 2.86, sodium 144, potassium 3.8, chloride 114, CO2 of 20. The uri ne culture from 08/19/2016 showed still E. coli. Urine culture from 08/20/2016 showed no growth aft er 48 hours. IMPRESSION: Hematuria and the patient did have urinary tract infection and he is being treated for that. A urine cytology was done already twice and that was negative. PLAN: Continue the antibiotic. He is going to have 1 more cytology. Then if the patient is discha rged home, I need to see him in the office. I gave him my card with my number, told him to call my office and make an appointment to where we could check him in the office and even maybe do a cystosc opy to make sure there is no bladder tumor. The patient did understand that, I will write an order so at the time of discharge to instruct the patient to make an appointment with Dr. Bustillos for foll owup for his hematuria. Dictated By: GEETA BUSTILLOS MD BB/MARCE Conf#: [id number] DID#: [id number] CC: RIAZ CADENA MD;*EndCC*
[2016-08-24 20:57] VITALS: BP 119/58; PULSE 70
[2016-08-25] MEDS: ALBUTEROL 18 GM INHALER INH SCH ×4 (00:25→18:49)
[2016-08-25] MEDS: PANTOPRAZOLE (EC) 40 MG TAB PO SCH (06:01)
[2016-08-25] MEDS: LEVOFLOXACIN 250 MG TAB PO SCH (06:01)
[2016-08-25] MEDS: COLESEVELAM 625 MG TAB PO SCH ×2 (08:39→20:37)
[2016-08-25] MEDS: FOLIC ACID 1 MG TAB PO SCH (08:39)
[2016-08-25] MEDS: ALLOPURINOL 100 MG TAB PO SCH (08:39)
[2016-08-25] MEDS: CHOLECALCIFEROL 1,000 UNIT TAB PO SCH (08:40)
[2016-08-25] MEDS: CILOSTAZOL 100 MG TAB PO SCH ×2 (08:40→20:38)
[2016-08-25] MEDS: FINASTERIDE 5 MG TAB PO SCH (08:40)
[2016-08-25] MEDS: LORATADINE 10 MG TAB PO SCH (08:40)
[2016-08-25] MEDS: CLOPIDOGREL 75 MG TAB PO SCH (08:40)
[2016-08-25] MEDS: CITRIC ACID/SODIUM CITRATE 15 ML CUP PO SCH ×2 (08:42→20:35)
[2016-08-25] MEDS: TOBRAMYCIN 0.3% 5 ML OPH BOTH EYES SCH ×2 (08:42→20:40)
[2016-08-25] MEDS: ISOSORBIDE MONONITRATE(SR)60 MG TAB PO SCH (08:43)
[2016-08-25 08:44] VITALS: BP 128/75; RESP 20
[2016-08-25] MEDS: APIXABAN 5 MG TABLET PO SCH ×2 (08:49→20:38)
[2016-08-25] MEDS ORDERED: FUROSEMIDE 40 MG INJ IV SCH (09:00)
[2016-08-25] MEDS: LEVOTHYROXINE 88 MCG TAB PO SCH ×2 (09:00→12:46)
[2016-08-25] MEDS: AMIODARONE 200 MG TAB PO SCH (09:00)
--- NOTE | 2016-08-25 17:15 | PDOCDIS ---
Discharge Instructions CONDITION Patient Condition: Stable HOME CARE INSTRUCTIONS: Special Diet: 2 G NA ACTIVITY: Activity Restrictions: Slowly Increase Activity FOLLOW UP/APPOINTMENTS Appointments see dr cadena [address] lim 1 wk RIAZ CADENA MD August 25, 2016 17:15
[2016-08-25] MEDS ORDERED: LEVO250T35 PO (17:18)
[2016-08-25] MEDS ORDERED: BICS PO (17:18)
[2016-08-25 20:00] VITALS: BP 115/59; RESP 19
[2016-08-25] MEDS: DOXAZOSIN 1 MG TAB PO SCH (20:39)
[2016-08-25] MEDS: GABAPENTIN 100 MG CAP PO SCH (20:40)
== END 2016-08-25 20:57 | disposition home health service (06) | DRG 392 ==
LOC: E/R 09:08 → PP2 14:10 → E/R 14:42
PROVIDERS: ADMIT Internal Medicine Nephrology; ATTEND Internal Medicine Nephrology
DX: K52.9 Noninfective gastroenteritis and colitis, unspecified (principal); N17.9 Acute kidney failure, unspecified; E87.2 Acidosis; N39.0 Urinary tract infection, site not specified; I12.9 Hypertensive chronic kidney disease with stage 1 through stage 4 chronic kidney disease, or unspecified chronic kidney disease; N18.9 Chronic kidney disease, unspecified; B96.20 Unspecified Escherichia coli [E. coli] as the cause of diseases classified elsewhere; Z95.1 Presence of aortocoronary bypass graft; Z95.0 Presence of cardiac pacemaker; Z95.5 Presence of coronary angioplasty implant and graft; M10.9 Gout, unspecified; R31.29 Other microscopic hematuria
CPT/HCPCS: 74176; 76856; 80048; 80053; 81001; 81003; 83036; 83690; 84560; 85025; 87045; 87075; 87086; 87177; 88104; 97162; C9113; J1940; J7030; J7040; J7042